=== PATIENT | female | born 1950 | race Caucasian/White ===

== ENCOUNTER → 2023-03-22 09:47 | Outpatient (CLI) | payer MEDICARE, SELFPAY ==
--- NOTE | ~2023-03-22 | CT_ITS ---
EXAMINATION: CT ankle LT wo con DATE: 03/22/2023 10:10 INDICATION: Closed nondisplaced left calcaneal fracture. TECHNIQUE: High resolution computed tomography (CT) of the left foot and ankle was performed without intravenous contrast. Additional sagittal and coronal reconstructions were performed. Automated expos ure control and iterative reconstruction technique were employed. The dose-length product was 308.77 mGy-cm. COMPARISON: None FINDINGS: There is a markedly comminuted joint depression type calcaneal fracture with essentially complete fla ttening of Boehler's angle. There are 3 fracture lines extending anteroposteriorly across the posteri or facet of the subtalar joint with 3-4 mm depression of a fracture fragment situated between the mid and medial most fracture planes consistent with Lewis type IIIAB fracture. The lateral most fractu re plane extends anteriorly across the anterior facet of the subtalar joint where there is 3 mm separ ation of the fracture plane along the articular cortex. There are multiple small and very small centr al fracture fragments along the multiple fracture planes. No other fractures identified. 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 Dystrophic calcifications are seen along many of the stabil izing ligaments at the medial and lateral ankle and at the osseous insertions of multiple tendons inc luding the Achilles tendon, the tibialis posterior tendon and proximal plantar aponeurosis. This coul d be enthesopathic in origin including the setting of bridging osteophytes at multiple levels consist ent with diffuse idiopathic skeletal hyperostosis (DISH) but also be seen in the setting of a crystal line arthropathy although no osseous erosions are identified to more specifically suggest this. No an kle joint effusion or other abnormal fluid collections. IMPRESSION: 1. Markedly comminuted joint depression type/Lewis type III AB calcaneal fracture. Reviewed, dictated and finalized at location A. HOUSER IMPRESSION: 1. Markedly comminuted joint depression type/Lewis type III AB calcaneal frac ture.
== END ==
PROVIDERS: PCP Family Medicine Sports Medicine; Visit Provider Family Medicine Sports Medicine
DX: M79.672 Pain in left foot (principal); S92.002A Unspecified fracture of left calcaneus, initial encounter for closed fracture; S99.912A Unspecified injury of left ankle, initial encounter; X58.XXXA Exposure to other specified factors, initial encounter
CPT/HCPCS: 73700

== ENCOUNTER 2023-12-20 09:06 | Day surgery (SDC) | payer MEDICARE, SELFPAY ==
[2023-11-29 10:55] VITALS: BMI 25.9
[2023-12-20 09:45] VITALS: BP 138/73; PULSE 72; RESP 16; TEMP 35.8; O2SAT 100; BMI 26.3
[2023-12-20] MEDS: LACTATED RINGERS 1,000 ML 150 ML IV CONT (09:59)
--- NOTE | 2023-12-20 10:18 | P.PNAN_ITS ---
Anes - Initial Pre Proc Eval Procedure: Operation Date: 12/20/23 10:30 Proposed Procedures p Screening Colonoscopy - Abdias Levy MD Date/Time: 12/20/23 10:18 Surgeon: Abdias Levy MD Pre Op Diagnosis: screening for malignant neoplasm of colon Patient Data Age: 73 Gender: F Height: 1.68 m Weight: 73.9 kg Last Vital Signs Temp 35.8 C L 12/20/23 09:45 Pulse 72 12/20/23 09:45 Resp 16 12/20/23 09:45 BP 138/73 12/20/23 09:45 Pulse Ox 100 12/20/23 09:45 O2 Del Method Room Air 12/20/23 09:45 Allergies Allergy/AdvReac Type Severity Reaction Status Date / Time amoxicillin Allergy Rash Verified 12/20/23 09:44 Home Medications Medication Instructions Recorded Confirmed Type levothyroxine 100 mcg tablet 100 mcg PO DAILY 11/29/23 12/20/23 History meloxicam 15 mg tablet 15 mg PO DAILY 11/29/23 12/20/23 History Patient hx anesthesia problems: none Family hx anesthesia problems: none Results Review: All pre-operative results and documents have been reviewed as part of the pre- operative evaluation. [facility] Past Medical History Medical History (Updated 12/20/23 @ 10:18 by Gabriel Mahajan MD) Hypothyroidism Surgical History Surgical History (Updated 12/20/23 @ 10:19 by Gabriel Mahajan MD) History of total knee arthroplasty Social History Social History Years smoked: 5 Smoking status: Former smoker Tobacco type: cigarettes Additional smoking assessment comments: age 23 1 pack per week Alcohol intake: current Drinks per week: 2 Living arrangements: with family Spiritual care concerns: No Anes - Eval Final PreProcedure Day of Procedure 12/20/23 10:18 Patient weight: overweight Heart: regular rate and rhythm Lungs: clear to auscultation Airway: Mallampati scale class II Neurological: alert and oriented Last oral intake: >/= 8 hours ASA classification: II Emergent: no Anesthetic plan: proceed Anesthesia type and monitoring: general GIVS and standard monitoring Results Review: All pre-operative results and documents have been reviewed as part of the pre- operative evaluation. Informed Consent: The patient's anesthetic plan and its attendant risks and benefits were discussed with the patient/family/POA. Questions were solicited and answers provided to the satisfaction of the patient/family/POA.
--- NOTE | 2023-12-20 10:33 | PM.IMHP ---
H&P: HPI History of Present Illness Date/Time: 12/20/23 10:33 Chief Complaint: Patient is for screening colonoscopy. Last colonoscopy 10 years ago. Review of Systems Review of Systems: All systems reviewed & are unremarkable except as noted in HPI and below [facility] Past Medical History Medical History (Updated 12/20/23 @ 10:38 by Abdias Levy MD) Hypothyroidism Surgical History Surgical History (Updated 12/20/23 @ 10:19 by Gabriel Mahajan MD) History of total knee arthroplasty Social History Social History Years smoked: 5 Smoking status: Former smoker Tobacco type: cigarettes Additional smoking assessment comments: age 23 1 pack per week Alcohol intake: current Drinks per week: 2 Living arrangements: with family Spiritual care concerns: No Meds Home Medications and Allergies Home Medications Medication Instructions Recorded Confirmed Type levothyroxine 100 mcg tablet 100 mcg PO DAILY 11/29/23 12/20/23 History meloxicam 15 mg tablet 15 mg PO DAILY 11/29/23 12/20/23 History Allergies Allergy/AdvReac Type Severity Reaction Status Date / Time amoxicillin Allergy Rash Verified 12/20/23 09:44 Vital Signs Vital Signs - 24 hr 12/20/23 09:45 Temperature 96.4 F L Pulse Rate 72 Respiratory Rate 16 Blood Pressure 138/73 Pulse Oximetry 100 Oxygen Delivery Room Air Assessment and Plan Assessment and plan (1) Screening for malignant neoplasm of colon: Code(s): Z12.11 - Encounter for screening for malignant neoplasm of colon Status: Acute Plan Patient deemed a good candidate for colonoscopy. We will proceed.
[2023-12-20 11:01] VITALS: BP 87/52; PULSE 70; RESP 23; O2SAT 98
[2023-12-20 11:11] VITALS: BP 113/61; PULSE 72; RESP 20; O2SAT 100
[2023-12-20 11:21] VITALS: BP 119/68; PULSE 65; RESP 20; O2SAT 99
== END 2023-12-20 11:30 | disposition home or self-care (01) ==
PROVIDERS: PCP Family Medicine Sports Medicine; Visit Provider Internal Medicine Gastroenterology
PROC: 0DJD8ZZ Inspection of Lower Intestinal Tract, Via Natural or Artificial Opening Endoscopic (ICD-10-PCS; CPT 45378; principal; 2023-12-20 10:30)
DX: Z12.11 Encounter for screening for malignant neoplasm of colon (principal); K57.30 Diverticulosis of large intestine without perforation or abscess without bleeding; E03.9 Hypothyroidism, unspecified; Z98.890 Other specified postprocedural states; Z87.891 Personal history of nicotine dependence
CPT/HCPCS: G0121; J2003; J2704; J7120